=== PATIENT | male | born 1960 | race Caucasian/White ===

== ENCOUNTER → 2023-08-10 09:25 | Outpatient (REF) | payer BC, SELFPAY ==
[2023-08-10 09:59] LABS: Platelet Count 141 10^3/uL (130-400)
== END ==
LOC: OIDL 09:25
PROVIDERS: ATTENDING PHYSICIAN Nurse Practitioner Acute Care; FAMILY PHYSICIAN Family Medicine
DX: D69.6 Thrombocytopenia, unspecified (principal); D69.3 Immune thrombocytopenic purpura
CPT/HCPCS: 85049

== ENCOUNTER → 2024-03-29 09:33 | Outpatient (REF) | payer BC, SELFPAY ==
[2024-03-29 10:43] LABS: Platelet Count 149 10^3/uL (130-400)
== END ==
LOC: REG 09:33
PROVIDERS: ATTENDING PHYSICIAN Internal Medicine Hematology & Oncology; FAMILY PHYSICIAN Family Medicine
DX: D69.6 Thrombocytopenia, unspecified (principal); D69.3 Immune thrombocytopenic purpura
CPT/HCPCS: 36415; 85049